=== PATIENT | female | born 1995 | race African-American/Black ===

== ENCOUNTER 2017-08-05 08:56 | Inpatient (IN) ==
[2017-08-05] MEDS ORDERED: LACTATED RINGERS 500 ML IV PRN (09:20)
[2017-08-05] MEDS ORDERED: FAMOTIDINE 20 MG/2 ML VIAL IV ONE (09:22)
[2017-08-05] MEDS ORDERED: LACTATED RINGERS 1,000 ML IV ONE (09:22)
[2017-08-05] MEDS ORDERED: LACTATED RINGERS 500 ML IV ONE (09:22)
[2017-08-05] MEDS ORDERED: ePHEDrine 50 MG/ML AMP IV PRN (09:22)
[2017-08-05] MEDS ORDERED: CITRIC ACID/SODIUM CITRATE 30 ML UDCUP PO ONE (09:22)
[2017-08-05] MEDS ORDERED: diphenhydrAMINE 50 MG/1 ML VIAL IV PRN ×2 (09:25)
[2017-08-05] MEDS ORDERED: hydrOXYzine HCL 25 MG/1 ML VIAL IM PRN (09:25)
[2017-08-05] MEDS ORDERED: PROMETHAZINE 25 MG/1 ML VIAL IM ONE (09:25)
[2017-08-05] MEDS ORDERED: fentaNYL 2 MCG/ROPIV 0.2% EPID 150 ML EPIDURAL SCH (09:30)
[2017-08-05] MEDS: ONDANSETRON 4 MG/2 ML VIAL IV PRN ×2 (09:31→19:15)
[2017-08-05] MEDS: BUTORPHANOL 2 MG/ML VIAL IV PRN ×2 (09:31→15:12)
[2017-08-05 09:40] LABS: Basophils % 0.2 % (0.0-0.8); Hematocrit 38.8 VOL% (35.7-47.0); Hemoglobin 13.3 GM/DL (12.0-16.0); Immature Granulocytes % 0.7 %; Immature Granulocytes Absolute 0.09 #; Lymphocytes # 0.8 10*3/uL (1.4-4.0); Lymphocytes % 6.1 % (21.3-54.2); Mean Corpuscular HGB Conc 34.3 GM/DL (32-36); Mean Corpuscular Hemoglobin 30 PG (27-34); Mean Corpuscular Volume 86.8 FL (87-102); Mean Platelet Volume 10.3 FL (9.6-12.0); Monocytes # 0.3 10*3/uL (0.11-0.8); Monocytes % 2.4 % (1.7-12.7); Neutrophils # 11.3 10*3/uL (1.4-7.4); Neutrophils % 90.6 % (38.7-73.9); Platelet Count 315 T/CUMM (130-400); Red Blood Count 4.47 MC/CUMM (3.8-5.5); Red Cell Distribution Width 13.2 % (9.3-17.3); White Blood Count 12.4 T/CUMM (4-12)
[2017-08-05] MEDS ORDERED: ROPIVACAINE 0.5% 30 ML VIAL ONE (09:49)
[2017-08-05] MEDS: LACTATED RINGERS 1,000 ML IV SCH ×2 (09:52→12:25)
[2017-08-05 10:15] LABS: Albumin 2.9 G/DL (3.4-5.0); Calcium 9.3 MG/DL (8.5-10.1); Osmolality,Calculated 277.5 MOS/KG (273-304); Total Protein 7.2 G/DL (6.4-8.3)
[2017-08-05 10:26] LABS: Band Neutrophils 1 % (0-10); Eosinophils 1 % (0-10); Hypochromasia 1+; Lymphocytes 3 % (20-55); Platelet Estimate Adequate; Segmented Neutrophils 89 % (50-85); Total Cells Counted 100
[2017-08-05] MEDS ORDERED: OXYTOCIN/LR 20 UNIT/1,000 ML BAG IV SCH (11:00)
[2017-08-05] MEDS ORDERED: OXYTOCIN/LR 20 UNIT/1,000 ML BAG IV ONE (16:30)
[2017-08-05] MEDS ORDERED: ONDANSETRON 4 MG/2 ML VIAL IV PRN (19:48)
[2017-08-05] MEDS ORDERED: MAGNESIUM HYDROXIDE SUSP 30 ML UDCUP PO PRN (19:48)
[2017-08-05] MEDS ORDERED: ACETAMINOPHEN 325 MG TABLET PO PRN (19:48)
[2017-08-05] MEDS ORDERED: BISACODYL 10 MG SUPP RECTAL PRN (19:48)
[2017-08-05] MEDS ORDERED: LACTATED RINGERS 1,000 ML IV SCH (19:48)
[2017-08-05] MEDS: DOCUSATE SODIUM 100 MG CAPSULE PO SCH (21:23)
[2017-08-06 06:59] LABS: Basophils % 0.2 % (0.0-0.8); Eosinophils % 0.1 % (0.00-10.9); Hematocrit 30.8 VOL% (35.7-47.0); Hemoglobin 10.4 GM/DL (12.0-16.0); Immature Granulocytes % 0.7 %; Lymphocytes # 2.5 10*3/uL (1.4-4.0); Lymphocytes % 17.3 % (21.3-54.2); Mean Corpuscular HGB Conc 33.8 GM/DL (32-36); Mean Corpuscular Hemoglobin 30 PG (27-34); Mean Corpuscular Volume 88.3 FL (87-102); Mean Platelet Volume 10.6 FL (9.6-12.0); Monocytes % 6.9 % (1.7-12.7); Neutrophils # 10.8 10*3/uL (1.4-7.4); Neutrophils % 74.8 % (38.7-73.9); Platelet Count 222 T/CUMM (130-400); Red Blood Count 3.49 MC/CUMM (3.8-5.5); Red Cell Distribution Width 13.3 % (9.3-17.3); White Blood Count 14.4 T/CUMM (4-12)
[2017-08-06] MEDS: IBUPROFEN 800 MG TABLET PO PRN ×2 (08:25→17:44)
[2017-08-06] MEDS: MULTIVITAMIN (PRENATAL) TABLET PO SCH (08:25)
[2017-08-06] MEDS: DOCUSATE SODIUM 100 MG CAPSULE PO SCH ×2 (08:25→21:26)
[2017-08-07] MEDS: DOCUSATE SODIUM 100 MG CAPSULE PO SCH (08:59)
[2017-08-07] MEDS: MULTIVITAMIN (PRENATAL) TABLET PO SCH (08:59)
[2017-08-07] MEDS: IBUPROFEN 800 MG TABLET PO PRN (09:01)
[2017-08-07 10:04] VITALS: BP 121/74
== END 2017-08-07 13:30 | disposition home or self-care (01) | DRG 560 ==
LOC: N.LDOUT 08:56 → N.LD 08:58 → N.OB 16:48
PROVIDERS: ADMIT Obstetrics & Gynecology; ATTEND Obstetrics & Gynecology

== ENCOUNTER 2019-06-28 23:30 | Inpatient (IN) ==
[2019-06-29] MEDS ORDERED: DINOPROSTONE 10 MG VAG.INSERT VAG ONE (00:14)
[2019-06-29] MEDS ORDERED: MEPERIDINE 50 MG/1 ML VIAL IV PRN (00:14)
[2019-06-29 00:53] LABS: Basophils % 0.1 % (0.0-0.8); Eosinophils # 0.1 10*3/uL (0.0-0.87); Eosinophils % 1.5 % (0.00-10.9); Hematocrit 32.1 VOL% (35.7-47.0); Hemoglobin 10.9 GM/DL (12.0-16.0); Immature Granulocytes % 0.6 %; Immature Granulocytes Absolute 0.05 #; Lymphocytes # 2.1 10*3/uL (1.4-4.0); Lymphocytes % 26.2 % (21.3-54.2); Mean Corpuscular Volume 85.6 FL (87-102); Mean Platelet Volume 9.9 FL (9.6-12.0); Monocytes % 7.8 % (1.7-12.7); Neutrophils % 63.8 % (38.7-73.9); Platelet Count 288 T/CUMM (130-400); Red Blood Count 3.75 MC/CUMM (3.8-5.5); Red Cell Distribution Width 13.1 % (9.3-17.3); White Blood Count 7.9 T/CUMM (4-12)
[2019-06-29 01:00] LABS: Alanine Aminotransferase 18 U/L (13-56); Albumin 2.6 G/DL (3.4-5.0); Alkaline Phosphatase 106 U/L (45-117); Aspartate Amino Transferase 20 U/L (0-37); Bilirubin,Total < 0.39 MG/DL (0.2-1.0); Blood Urea Nitrogen 12 MG/DL (7-18); Calcium 8.6 MG/DL (8.5-10.1); Estimated Glom Filtration Rate 157 ML/MIN; Glucose 79 MG/DL (74-106); Osmolality,Calculated 275.5 MOS/KG (273-304)
[2019-06-29] MEDS: LACTATED RINGERS 1,000 ML IV SCH ×2 (01:10→05:21)
[2019-06-29] MEDS: BUTORPHANOL 2 MG/ML VIAL IV PRN ×2 (01:12→09:41)
[2019-06-29] MEDS: ONDANSETRON 4 MG/2 ML VIAL IV PRN ×2 (01:13→06:25)
[2019-06-29] MEDS ORDERED: MEPERIDINE 25 MG/1 ML VIAL IV PRN (06:03)
[2019-06-29] MEDS ORDERED: CITRIC ACID/SODIUM CITRATE 30 ML UDCUP PO ONE (10:47)
[2019-06-29] MEDS ORDERED: FAMOTIDINE 20 MG/2 ML VIAL IV ONE (10:47)
[2019-06-29] MEDS ORDERED: diphenhydrAMINE 50 MG/1 ML VIAL IV PRN ×2 (10:47)
[2019-06-29] MEDS ORDERED: ePHEDrine 50 MG/ML AMP IV PRN (10:47)
[2019-06-29] MEDS ORDERED: hydrOXYzine HCL 25 MG/1 ML VIAL IM PRN (10:47)
[2019-06-29] MEDS ORDERED: NALOXONE 0.4 MG/ML VIAL IV PRN (10:47)
[2019-06-29] MEDS ORDERED: fentaNYL 2 MCG/ROPIV 0.2% EPID 100 ML EPIDURAL SCH (11:00)
[2019-06-29] MEDS ORDERED: OXYTOCIN/LR 20 UNIT/1,000 ML BAG IV SCH (11:30)
[2019-06-29] MEDS ORDERED: LACTATED RINGERS 1,000 ML IV ONE (12:47)
[2019-06-29] MEDS ORDERED: MAGNESIUM HYDROXIDE SUSP 30 ML UDCUP PO PRN (17:07)
[2019-06-29] MEDS ORDERED: BISACODYL 10 MG SUPP RECTAL PRN (17:07)
[2019-06-29] MEDS ORDERED: ACETAMINOPHEN 325 MG TABLET PO PRN (17:07)
[2019-06-29] MEDS ORDERED: LACTATED RINGERS 1,000 ML IV SCH (17:30)
[2019-06-29] MEDS ORDERED: IBUPROFEN 800 MG TABLET PO ONE (19:12)
[2019-06-29] MEDS: KETOROLAC 15 MG/1 ML VIAL IV SCH (19:36)
[2019-06-29] MEDS: DOCUSATE SODIUM 100 MG CAPSULE PO SCH (21:35)
[2019-06-30] MEDS: KETOROLAC 15 MG/1 ML VIAL IV SCH ×4 (01:52→16:32)
[2019-06-30 05:46] LABS: Basophils % 0.2 % (0.0-0.8); Eosinophils # 0.1 10*3/uL (0.0-0.87); Eosinophils % 0.7 % (0.00-10.9); Hemoglobin 10.3 GM/DL (12.0-16.0); Immature Granulocytes % 0.4 %; Immature Granulocytes Absolute 0.04 #; Lymphocytes # 1.7 10*3/uL (1.4-4.0); Lymphocytes % 15.9 % (21.3-54.2); Mean Corpuscular HGB Conc 33.2 GM/DL (32-36); Mean Corpuscular Volume 86.8 FL (87-102); Mean Platelet Volume 9.9 FL (9.6-12.0); Neutrophils % 75.8 % (38.7-73.9); Platelet Count 256 T/CUMM (130-400); Red Blood Count 3.57 MC/CUMM (3.8-5.5); Red Cell Distribution Width 13.2 % (9.3-17.3); White Blood Count 10.8 T/CUMM (4-12)
[2019-06-30] MEDS: MULTIVITAMIN (PRENATAL) TABLET PO SCH (10:43)
[2019-06-30] MEDS: DOCUSATE SODIUM 100 MG CAPSULE PO SCH ×2 (10:43→21:20)
[2019-06-30] MEDS ORDERED: ONDANSETRON 4 MG/2 ML VIAL IV PRN (12:19)
[2019-06-30] MEDS: IBUPROFEN 800 MG TABLET PO SCH (17:34)
[2019-07-01] MEDS: IBUPROFEN 800 MG TABLET PO SCH ×2 (03:25→11:30)
[2019-07-01 08:20] VITALS: BP 98/69
[2019-07-01] MEDS: MULTIVITAMIN (PRENATAL) TABLET PO SCH (09:04)
[2019-07-01] MEDS: DOCUSATE SODIUM 100 MG CAPSULE PO SCH (09:04)
[2019-07-01] MEDS ORDERED: DIPH/TET/ACEL PERT BOOSTER VACCINE 0.5 ML VIAL IM ONE (10:53)
== END 2019-07-01 14:25 | disposition home or self-care (01) | DRG 560 ==
LOC: N.LDOUT 23:30 → N.LD 23:32 → N.OB 06-29 20:15
PROVIDERS: ADMIT Obstetrics & Gynecology; ATTEND Obstetrics & Gynecology